=== PATIENT | female | born 1935 | race Caucasian/White ===

== ENCOUNTER 2024-07-04 14:13 | Inpatient (IN) | payer BC, MEDICARE ==
--- NOTE | 2024-07-04 14:44 | ED ---
General Adult HPI - General Chief complaint: Altered Mental Status Stated complaint: AMS Time Seen by Provider: 07/04/24 14:14 Source: patient, family, EMS, RN notes reviewed Mode of arrival: EMS Limitations: altered mental status, physical limitation - History of Present Illness Initial comments: Patient is an 88-year-old female presenting to the emergency department with concerns with change in mental status. Onset of symptoms was yesterday. Patie nt did have foul odor to the urine over the past day. Patient has been drowsy for the past 24 hours and not out of bed. No oral intake since that time. Daughter is concerned for urinary tract infection. Patient is drowsy and difficult to arouse. Patient only answers one-word with limited conversation. Patient denies complaints. - Related Data Home Medications Medication Instructions Recorded Confirmed ALPRAZolam [Xanax] 0.125 - 0.25 mg PO BID PRN 07/04/24 07/04/24 Albuterol Nebulized [Ventolin 1.25 mg INHALATION RT-Q4H PRN 07/04/24 07/04/24 Nebulized (Accuneb)] Cholecalciferol (Vitamin D3) 50 mcg PO W/LUNCH 07/04/24 07/04/24 [Vitamin D3 (50 Mcg = 2000 Iu)] Cranberry Fruit Extract [Cranberry] 500 mg PO W/LUNCH 07/04/24 07/04/24 Fluticasone/Umeclidin/Vilanter 1 puff INHALATION RT-DAILY 07/04/24 07/04/24 [Trelegy Ellipta 200-62.5-25] HYDROcodone/APAP 5-325MG [[place] 1 tab PO QID PRN 07/04/24 07/04/24 5-325] Levothyroxine Sodium [Synthroid] 50 mcg PO AC-BRKFST 07/04/24 07/04/24 Mirtazapine 15 mg PO HS 07/04/24 07/04/24 Potassium Chloride ER [K-Dur 10] 10 meq PO DAILY 07/04/24 07/04/24 Pregabalin [Lyrica] 100 mg PO HS 07/04/24 07/04/24 predniSONE 5 mg PO DAILY 07/04/24 07/04/24 Allergies Allergy/AdvReac Type Severity Reaction Status Date / Time No Known Allergies Allergy Verified 07/04/24 15:51 Review of Systems ROS Statement: Those systems with pertinent positive or pertinent negative responses have been documented in the HPI. ROS Other: All systems not noted in ROS Statement are negative. Constitutional: Denies: fever Eyes: Denies: eye pain Gastrointestinal: Denies: vomiting Musculoskeletal: Denies: back pain Neurological: Reports: as per HPI, confusion Past Medical History Past Medical History: COPD History of Any Multi-Drug Resistant Organisms: MRSA Additional Past Surgical History / Comment(s): Hip replacement, cholecystectomy and wrist surgery Past Psychological History: Anxiety Smoking Status: Never smoker Past Alcohol Use History: None Reported Past Drug Use History: None Reported General Exam Limitations: altered mental status, physical limitation General appearance: in no apparent distress, other (Drowsy. Arousable to touch) Head exam: Present: atraumatic, normocephalic Eye exam: Present: normal appearance, PERRL, EOMI ENT exam: Present: mucous membranes dry Neck exam: Present: normal inspection. Absent: tenderness, meningismus Respiratory exam: Present: normal lung sounds bilaterally Cardiovascular Exam: Present: regular rate, normal rhythm GI/Abdominal exam: Present: soft. Absent: tenderness Extremities exam: Present: normal inspection Neurological exam: Present: alert, CN II-XII intact Expanded Neurological exam: Present: protecting the airway Patient oriented to: Present: person, place. Absent: time (Family states sometimes this is normal) Motor strength exam: RUE: 5, LUE: 5, RLE: 2/1, LLE: 2/1 Eye Response: (2) open to pain Motor Response: (6) obeys commands Verbal Response: (4) confused conversation Psychiatric exam: Present: flat affect Skin exam: Present: normal color Course Vital Signs 07/04/24 07/04/24 14:15 16:00 Temperature 98.4 F Pulse Rate 62 66 Respiratory 18 18 Rate Blood Pressure 88/53 88/47 O2 Sat by Pulse 100 97 Oximetry EKG Findings - EKG Results: EKG: interpreted by ERMD (Left axis. Right bundle branch block.), sinus rhythm, normal ST/T Medical Decision Making - Medical Decision Making Was pt. sent in by a medical professional or institution (, PA, [employer]ATOR, urgent care, hospital, or usp...) When possible be specific @ -No Did you speak to anyone other than the patient for history (EMS, parent, family, police, friend...)? What history was obtained from this source @ -Daughter is present and provides majority of history as patient is drowsy and poor historian Did you review nursing and triage notes (agree or disagree)? Why? @ -I reviewed and agree with nursing and triage notes Were old charts reviewed (outside hosp., previous admission, EMS record, old EKG, old radiological studies, urgent care reports/EKG's, usp records)? Report findings @ -No labs available Differential Diagnosis (chest pain, altered mental status, abdominal pain women, abdominal pain men, vaginal bleeding, weakness, fever, dyspnea, syncope, headache, dizziness, GI bleed, back pain, seizure, CVA, palpatations, mental health, musculoskeletal)? @ -Differential Altered Mental Status: Hypoglycemia, DKA, hypercapnia, ETOH, overdose, CO poisoning, trauma, myxedema coma, HTN encephalopathy, infection, encephalitis, psychosis, intercranial hemorrhage, hepatic encephalopathy, meningitis, CVA, this is not meant to be an all-inclusive list EKG interpreted by me (3pts min.). @ -As above X-rays interpreted by me (1pt min.). @ -Chest x-ray with some bibasilar infiltrates, possible pneumonia CT interpreted by me (1pt min.). @ -CT brain without obvious acute abnormality U/S interpreted by me (1pt. min.). @ -None done What testing was considered but not performed or refused? (CT, X-rays, U/S, labs)? Why? @ -None What meds were considered but not given or refused? Why? @ -None Did you discuss the management of the patient with other professionals (professionals i.e. , PA, [employer]ATOR, lab, RT, psych nurse, manager social work, elevated work platform operator, teacher, promotions officer, manager of case management)? Give summary @ -Case discussed with practitioner Sarah Cha will admit covering hospital call Was smoking cessation discussed for >3mins.? @ -No Was critical care preformed (if so, how long)? @ -32 minutes critical care Were there social determinants of health that impacted care today? How? (Homelessness, low income, unemployed, alcoholism, drug addiction, transportation, low edu. Level, literacy, decrease access to med. care, custodial, re hab)? @ -No Was there de-escalation of care discussed even if they declined (Discuss DNR or withdrawal of care, Hospice)? DNR status @ -With long discussion with family patient is DNR. Family does not want patient to have pressors nor central line. They are aware of patient's poor status and possible deterioration. What co-morbidities impacted this encounter? (DM, HTN, Smoking, COPD, CAD, Canc er, CVA, ARF, Chemo, Hep., AIDS, mental health diagnosis, sleep apnea, morbid obesity)? @ -Frequent urinary tract infection Was patient admitted / discharged? Hospital course, mention meds given and route, prescriptions, significant lab abnormalities, going to OR and other pertinent info. @ -Patient presents with altered mental status and low blood pressure. Patient did receive 30 cc/kg fluid bolus. Blood culture and lactic acid and IV of antibiotics have all been ordered. Chest x-ray concerning for possible pneumonia. Pressors have been refused by family. Patient will be admitted. Admission orders written. Undiagnosed new problem with uncertain prognosis? @ -No Drug Therapy requiring intensive monitoring for toxicity (Heparin, Nitro, Insulin, Cardizem)? @ -No Were any procedures done? @ -No Diagnosis/symptom? @ -Pneumonia, sepsis, altered mental state, dehydration Acute, or Chronic, or Acute on Chronic? @ -Acute, acute Uncomplicated (without systemic symptoms) or Complicated (systemic symptoms)? @ -Default Side effects of treatment? @ -No Exacerbation, Progression, or Severe Exacerbation? @ -No Poses a threat to life or bodily function? How? (Chest pain, USA, CT, pneumonia, PE, COPD, DKA, ARF, appy, cholecystitis, CVA, Diverticulitis, Homicidal, Suicidal, threat to staff... and all critical care pts) @ -Threat for multi organ dysfunction - Lab Data Result diagrams: 07/04/24 14:46 07/04/24 14:46 Lab Results 07/04/24 07/04/24 07/04/24 Range/Units 14:45 14:46 14:46 WBC 23.1 H (3.8-10.6) k/uL RBC 4.68 (3.80-5.40) m/uL Hgb 13.1 (11.4-16.0) gm/dL Hct 42.9 (34.0-46.0) % MCV 91.8 (80.0-100.0) fL MCH 28.0 (25.0-35.0) pg MCHC 30.5 L (31.0-37.0) g/dL RDW 16.7 H (11.5-15.5) % Plt Count 133 L (150-450) k/uL MPV 8.3 Neutrophils % 84 % Lymphocytes % 9 % Monocytes % 5 % Eosinophils % 0 % Basophils % 0 % Neutrophils # 19.4 H (1.3-7.7) k/uL Lymphocytes # 2.1 (1.0-4.8) k/uL Monocytes # 1.1 H (0-1.0) k/uL Eosinophils # 0.0 (0-0.7) k/uL Basophils # 0.1 (0-0.2) k/uL Hypochromasia Marked Anisocytosis Slight PT 10.6 (10.0-12.5) sec INR 1.0 (<1.2) APTT 25.0 (22.0-30.0) sec Sodium (137-145) mmol/L Potassium (3.5-5.1) mmol/L Chloride (98-107) mmol/L Carbon Dioxide (22-30) mmol/L Anion Gap mmol/L BUN (7-17) mg/dL Creatinine (0.52-1.04) mg/dL Est GFR (CKD-EPI)AfAm (>60 ml/min/1.73 sqM) Est GFR (CKD-EPI)NonAf (>60 ml/min/1.73 sqM) Glucose (74-99) mg/dL POC Glucose (mg/dL) 80 (70-110) mg/dL POC Glu Retirement Sales Consultant ID Blandon, Alexia Calcium (8.4-10.2) mg/dL Total Bilirubin (0.2-1.3) mg/dL AST (14-36) U/L ALT (4-34) U/L Alkaline Phosphatase (38-126) U/L Troponin I (0.000-0.034) ng/mL Total Protein (6.3-8.2) g/dL Albumin (3.5-5.0) g/dL Urine Color Urine Appearance (Clear) Urine pH (5.0-8.0) Ur Specific [place] (1.001-1.035) Urine Protein (Negative) Urine Glucose (UA) (Negative) Urine Ketones (Negative) Urine Blood (Negative) Urine Nitrite (Negative) Urine Bilirubin (Negative) Urine Urobilinogen (<2.0) mg/dL Ur Leukocyte Esterase (Negative) Urine RBC (0-5) /hpf Urine WBC (0-5) /hpf Ur Squamous Epith Cells (0-4) /hpf Urine Bacteria (None) /hpf Hyaline Casts (0-2) /lpf Urine Mucus (None) /hpf Urine Opiates Screen (NotDetected) Ur Oxycodone Screen (NotDetected) Urine Methadone Screen (NotDetected) Ur Barbiturates Screen (NotDetected) U Tricyclic Antidepress (NotDetected) Ur Phencyclidine Scrn (NotDetected) Ur Amphetamines Screen (NotDetected) U Methamphetamines Scrn (NotDetected) U Benzodiazepines Scrn (NotDetected) Urine Cocaine Screen (NotDetected) U Marijuana (THC) Screen (NotDetected) 07/04/24 07/04/24 07/04/24 Range/Units 14:46 14:46 16:05 WBC (3.8-10.6) k/uL RBC (3.80-5.40) m/uL Hgb (11.4-16.0) gm/dL Hct (34.0-46.0) % MCV (80.0-100.0) fL MCH (25.0-35.0) pg MCHC (31.0-37.0) g/dL RDW (11.5-15.5) % Plt Count (150-450) k/uL MPV Neutrophils % % Lymphocytes % % Monocytes % % Eosinophils % % Basophils % % Neutrophils # (1.3-7.7) k/uL Lymphocytes # (1.0-4.8) k/uL Monocytes # (0-1.0) k/uL Eosinophils # (0-0.7) k/uL Basophils # (0-0.2) k/uL Hypochromasia Anisocytosis PT (10.0-12.5) sec INR (<1.2) APTT (22.0-30.0) sec Sodium 135 L (137-145) mmol/L Potassium 4.8 (3.5-5.1) mmol/L Chloride 103 (98-107) mmol/L Carbon Dioxide 22 (22-30) mmol/L Anion Gap 10 mmol/L BUN 43 H (7-17) mg/dL Creatinine 2.23 H (0.52-1.04) mg/dL Est GFR (CKD-EPI)AfAm 22 (>60 ml/min/1.73 sqM) Est GFR (CKD-EPI)NonAf 19 (>60 ml/min/1.73 sqM) Glucose 81 (74-99) mg/dL POC Glucose (mg/dL) (70-110) mg/dL POC Glu Retirement Sales Consultant ID Calcium 8.3 L (8.4-10.2) mg/dL Total Bilirubin 1.5 H (0.2-1.3) mg/dL AST 29 (14-36) U/L ALT 10 (4-34) U/L Alkaline Phosphatase 106 (38-126) U/L Troponin I 0.063 H* (0.000-0.034) ng/mL Total Protein 5.3 L (6.3-8.2) g/dL Albumin 3.2 L (3.5-5.0) g/dL Urine Color Yellow Urine Appearance Cloudy H (Clear) Urine pH 5.5 (5.0-8.0) Ur Specific [place] 1.022 (1.001-1.035) Urine Protein 1+ H (Negative) Urine Glucose (UA) Negative (Negative) Urine Ketones 1+ H (Negative) Urine Blood Negative (Negative) Urine Nitrite Negative (Negative) Urine Bilirubin Negative (Negative) Urine Urobilinogen 4.0 (<2.0) mg/dL Ur Leukocyte Esterase Negative (Negative) Urine RBC 3 (0-5) /hpf Urine WBC 3 (0-5) /hpf Ur Squamous Epith Cells <1 (0-4) /hpf Urine Bacteria Rare H (None) /hpf Hyaline Casts 7 H (0-2) /lpf Urine Mucus Rare H (None) /hpf Urine Opiates Screen Detected H (NotDetected) Ur Oxycodone Screen Detected H (NotDetected) Urine Methadone Screen Not Detected (NotDetected) Ur Barbiturates Screen Not Detected (NotDetected) U Tricyclic Antidepress Not Detected (NotDetected) Ur Phencyclidine Scrn Not Detected (NotDetected) Ur Amphetamines Screen Not Detected (NotDetected) U Methamphetamines Scrn Not Detected (NotDetected) U Benzodiazepines Scrn Detected H (NotDetected) Urine Cocaine Screen Not Detected (NotDetected) U Marijuana (THC) Screen Not Detected (NotDetected) Disposition Clinical Impression: Altered mental status Disposition: ADMITTED IP TO THIS HOSP Is patient prescribed a controlled substance at d/c from ED?: No Referrals: Kyung Garrison MD [Primary Care Provider] - 1-2 days Time of Disposition: 17:15
[2024-07-04 14:46] LABS: Glucose,Whole Blood 80 mg/dL (70-110)
[2024-07-04] MEDS: SODIUM CHLORIDE 0.9% 1,000 ML IV ONE (14:47)
[2024-07-04 14:56] LABS: Anisocytosis Slight; Basophils # (A) 0.1 k/uL (0-0.2); Basophils % (A) 0 %; Eosinophils % (A) 0 %; HCT 42.9 % (34.0-46.0); HGB 13.1 gm/dL (11.4-16.0); Hypochromasia Marked; Lymphocytes # (A) 2.1 k/uL (1.0-4.8); Lymphocytes % (A) 9 %; MCHC 30.5 g/dL (31.0-37.0); MCV 91.8 fL (80.0-100.0); Mean Platelet Volume 8.3; Monocytes # (A) 1.1 k/uL (0-1.0); Monocytes % (A) 5 %; Neutrophils # (A) 19.4 k/uL (1.3-7.7); Neutrophils % (A) 84 %; Platelet Count 133 k/uL (150-450); RBC 4.68 m/uL (3.80-5.40); RDW 16.7 % (11.5-15.5); WBC 23.1 k/uL (3.8-10.6)
[2024-07-04 15:06] LABS: Prothrombin Time 10.6 sec (10.0-12.5)
[2024-07-04 15:21] LABS: ALT 10 U/L (4-34); AST 29 U/L (14-36); African American GFR (CKD) 22 (>60 ml/min/1.73 sqM); Albumin 3.2 g/dL (3.5-5.0); Alkaline Phosphatase 106 U/L (38-126); Anion Gap 10 mmol/L; Blood Urea Nitrogen 43 mg/dL (7-17); Calcium 8.3 mg/dL (8.4-10.2); Carbon Dioxide 22 mmol/L (22-30); Chloride 103 mmol/L (98-107); Glucose 81 mg/dL (74-99); Non-African American GFR(CKD) 19 (>60 ml/min/1.73 sqM); Potassium 4.8 mmol/L (3.5-5.1); Sodium 135 mmol/L (137-145); Total Bilirubin 1.5 mg/dL (0.2-1.3); Total Protein 5.3 g/dL (6.3-8.2)
--- NOTE | 2024-07-04 15:26 | XR ---
EXAMINATION TYPE: XR chest 2V DATE OF EXAM: 07/04/2024 COMPARISON: None HISTORY: 88-year-old female confusion, altered mental status, weakness TECHNIQUE: AP and lateral views FINDINGS: Heart upper limits of normal in size. Patchy mid and lower lung opacities and trace right pleural eff usion. Old left-sided rib fracture deformity. Osteopenia. Anterior wedging deformities of multiple mi d thoracic vertebral bodies. IMPRESSION: 1. Borderline heart size with patchy bibasilar pulmonary edema versus infiltrates. Correlate for any fluid overload state or infectious respiratory signs/symptoms. 2. Trace right pleural effusion. 3. Age indeterminate anterior wedge deformities of multiple mid thoracic vertebral bodies.
[2024-07-04] MEDS: SODIUM CHLORIDE 0.9% 250 ML IV STA (15:30)
--- NOTE | 2024-07-04 16:37 | CT ---
EXAMINATION TYPE: CT brain wo con CT DLP: 1146.4 mGycm, Automated exposure control for dose reduction was used. DATE OF EXAM: 07/04/2024 4:31 PM COMPARISON: None. CLINICAL INDICATION: Female, 88 years old with history of Altered mental status, AMS TECHNIQUE: Brain: Axial CT images of the brain were obtained with coronal and sagittal reformats created and rev iewed. Contrast used: None. Oral contrast used: None. FINDINGS: Brain: Extra-axial spaces: No abnormal extra-axial fluid collections. Ventricular system: Dilatation in proportion to cerebral atrophy. Cerebral parenchyma: Cerebral atrophy. No acute intraparenchymal hemorrhage or mass effect. The cruz -white junction is well differentiated. Scattered hypoattenuating areas are seen within the white mat ter. Cerebellum: Unremarkable. Mass effect: No evidence of midline shift. Intracranial vasculature: Atherosclerotic calcifications of the intracranial vessels. Soft tissues: Normal. Calvarium/osseous structures: No depressed skull fracture. Paranasal sinuses and mastoid air cells: Mild scattered paranasal sinus disease. Right mastoid effusi on. Visualized orbits: Bilateral aphakia IMPRESSION: 1. No acute intracranial process. 2. Nonspecific white matter changes, likely secondary to chronic small vessel ischemic disease.
[2024-07-04 16:57] LABS: Amphetamine Screen,Urine Not Detected (NotDetected); Appearance,Urine Cloudy (Clear); Bacteria,Urine Rare /hpf; Barbiturate Screen,Urine Not Detected (NotDetected); Benzodiazepines Screen,Urine Detected (NotDetected); Bilirubin,Urine Negative (Negative); Blood,Urine Negative (Negative); Cocaine Screen,Urine Not Detected (NotDetected); Color,Urine Yellow; Glucose,Urine (UA) Negative (Negative); Hyaline Casts,Urine 7 /lpf (0-2); Ketones,Urine 1+ (Negative); Leukocyte Esterase,Urine Negative (Negative); Methadone Screen, Urine Not Detected (NotDetected); Mucus,Urine Rare /hpf; Nitrite,Urine Negative (Negative); Opiate Screen,Urine Detected (NotDetected); Oxycodone Screen, Urine Detected (NotDetected); PH, Urine 5.5 (5.0-8.0); Phencyclidine Screen,Urine Not Detected (NotDetected); Protein,Urine 1+ (Negative); RBC,Urine 3 /hpf (0-5); Specific Gravity,Urine 1.022 (1.001-1.035); Squamous Epithelial Cell,Urine <1 /hpf (0-4); Tricyclic Antidepressant,Urine Not Detected (NotDetected); Urn Cannabinoid Scrn Not Detected (NotDetected); WBC,Urine 3 /hpf (0-5)
[2024-07-04] MEDS ORDERED: PNEUMONIA PROTOCOL UTILIZED 1 EACH MISC PO PRN (17:15)
[2024-07-04] MEDS ORDERED: ALBUTEROL NEBULIZED 2.5 MG/3 ML INHALATION PRN (17:18)
[2024-07-04] MEDS: AZITHROMYCIN 500 MG in SODIUM CHLORIDE 0.9% 250 ML IVPB STA (18:29)
[2024-07-04] MEDS: SODIUM CHLORIDE 0.9% 1,000 ML IV SCH (18:31)
[2024-07-04] MEDS: DEXAMETHASONE SOD PHOSPHATE 4 MG/ML 1 ML VIAL IVP STA (18:31)
[2024-07-04] MEDS: PREGABALIN 100 MG CAP PO SCH (20:01)
[2024-07-05] MEDS: IPRATROPIUM 0.5 MG/2.5 ML NEBU INHALATION SCH (08:33)
[2024-07-05] MEDS: SYMBICORT 80-4.5 MCG INHALER INHALATION SCH (08:34)
--- NOTE | 2024-07-05 08:57 | XR ---
EXAMINATION TYPE: XR chest 1V portable DATE OF EXAM: 07/05/2024 Comparison: 07/04/2024 Clinical History: 88-year-old female pneumonia Findings: Heart normal size. Diffuse interstitial density has increased. Patchy mid and lower lung opacities sl ightly increased. Old bilateral fracture deformities. Impression: Diffuse interstitial opacities and patchy bilateral lower lung opacities have increased. Correlate fo r possible etiologies including fluid overload and pneumonitis.
[2024-07-05 09:24] LABS: Anisocytosis Slight; Basophils % (A) 0 %; Eosinophils % (A) 0 %; HCT 39.2 % (34.0-46.0); Hypochromasia Moderate; Lymphocytes # (A) 0.4 k/uL (1.0-4.8); Lymphocytes % (A) 3 %; MCHC 30.6 g/dL (31.0-37.0); MCV 91.5 fL (80.0-100.0); Mean Platelet Volume 8.9; Monocytes # (A) 0.3 k/uL (0-1.0); Monocytes % (A) 2 %; Neutrophils # (A) 15.4 k/uL (1.3-7.7); Neutrophils % (A) 95 %; Platelet Count 113 k/uL (150-450); RBC 4.29 m/uL (3.80-5.40); WBC 16.2 k/uL (3.8-10.6)
[2024-07-05 09:44] LABS: African American GFR (CKD) 48 (>60 ml/min/1.73 sqM); Anion Gap 10 mmol/L; Blood Urea Nitrogen 44 mg/dL (7-17); Calcium 8.3 mg/dL (8.4-10.2); Carbon Dioxide 19 mmol/L (22-30); Chloride 106 mmol/L (98-107); Glucose 104 mg/dL (74-99); Non-African American GFR(CKD) 41 (>60 ml/min/1.73 sqM); Potassium 4.8 mmol/L (3.5-5.1); Sodium 135 mmol/L (137-145)
[2024-07-05] MEDS ORDERED: IOPAMIDOL CONTRAST (ORAL USE) VIAL PO PRN (10:13)
[2024-07-05 10:15] LABS: C Reactive Protein 28.2 mg/dL (<1.0)
--- NOTE | 2024-07-05 10:16 | P.HPIM ---
History of Present Illness This is a pleasant 88 years old female with past medical history of multiple medical problems Patient presents because of weakness and altered mental status. Patient currently awake alert but very tired information were obtained with the help of daughter at bedside Ms. Svetlana Walters. It looks like patient yesterday was coming back from the restroom using her walker, when she felt very weak and she has to sit down. So family decided to bring her to the hospital Patient herself denies chest pain or dyspnea or coughing. She denies abdominal pain or vomiting or diarrhea. She denies dysuria or change in frequency. No suprapubic pain. She denies dizziness headache new lateralization like weakness or tingling/numbness. No smoking alcohol or illicit drug history Patient also complains from some soreness in her tongue. On admission patient was hypotensive 88/48, she received IV fluids and currently blood pressure 98/60. She is afebrile. Labs reviewed showing leukocytosis 23.1 down to 16.1 and platelet count 133 down to 113. Creatinine is elevated 2.23. Troponin x 2 are elevated at 0.06 and 0.03 Urine analysis is negative for infection Urine drug screen is positive for opioids, oxycodone and benzodiazepine CT of the brain is negative for acute process Chest x-ray showing cardiomegaly and bilateral pulmonary edema versus infiltrate EKG sinus rhythm at [address]-T changes Patient passed swallow evaluation and placed on soft diet Review of Systems Review of systems CONSTITUTIONAL: No fever, no malaise, no fatigue. HEENT: No recent visual problems or hearing problems. Denied any sore throat. CARDIOVASCULAR: No orthopnea, PND, no palpitations, no syncope. PULMONARY: No shortness of breath, no cough, no hemoptysis. GASTROINTESTINAL: No diarrhea, no nausea, no vomiting, no abdominal pain. Normoactive bowel sounds. NEUROLOGICAL: No headaches, no weakness, no numbness. HEMATOLOGICAL: Denies any bleeding or petechiae. GENITOURINARY: Denies any burning micturition, frequency, or urgency. MUSCULOSKELETAL/RHEUMATOLOGICAL: Denies any joint pain, swelling, or any muscle pain. ENDOCRINE: Denies any polyuria or polydipsia. Past Medical History Past Medical History: COPD History of Any Multi-Drug Resistant Organisms: MRSA Additional Past Surgical History / Comment(s): Hip replacement, cholecystectomy and wrist surgery Past Psychological History: Anxiety Smoking Status: Never smoker Past Alcohol Use History: None Reported Past Drug Use History: None Reported Medications and Allergies Home Medications Medication Instructions Recorded Confirmed Type ALPRAZolam [Xanax] 0.125 - 0.25 mg PO BID PRN 07/04/24 07/04/24 History Albuterol Nebulized [Ventolin 1.25 mg INHALATION RT-Q4H PRN 07/04/24 07/04/24 History Nebulized (Accuneb)] Cholecalciferol (Vitamin D3) 50 mcg PO W/LUNCH 07/04/24 07/04/24 History [Vitamin D3 (50 Mcg = 2000 Iu)] Cranberry Fruit Extract [Cranberry] 500 mg PO W/LUNCH 07/04/24 07/04/24 History Fluticasone/Umeclidin/Vilanter 1 puff INHALATION RT-DAILY 07/04/24 07/04/24 History [Trelegy Ellipta 200-62.5-25] HYDROcodone/APAP 5-325MG [[place] 1 tab PO QID PRN 07/04/24 07/04/24 History 5-325] Levothyroxine Sodium [Synthroid] 50 mcg PO AC-BRKFST 07/04/24 07/04/24 History Mirtazapine 15 mg PO HS 07/04/24 07/04/24 History Potassium Chloride ER [K-Dur 10] 10 meq PO DAILY 07/04/24 07/04/24 History Pregabalin [Lyrica] 100 mg PO HS 07/04/24 07/04/24 History predniSONE 5 mg PO DAILY 07/04/24 07/04/24 History Allergies Allergy/AdvReac Type Severity Reaction Status Date / Time No Known Allergies Allergy Verified 07/04/24 15:51 Physical Exam Vitals: Vital Signs Temp Pulse Resp BP Pulse Ox 07/05/24 08:45 67 07/05/24 08:34 64 100 07/05/24 07:52 97.7 F 63 20 98/60 98 07/05/24 06:00 66 16 93/56 99 07/05/24 04:00 101 H 18 113/59 07/05/24 00:00 68 17 99/68 98 07/04/24 22:00 62 16 86/48 98 07/04/24 19:15 71 16 95/76 97 07/04/24 18:35 68 18 101/52 96 07/04/24 16:00 66 18 88/47 97 07/04/24 14:15 98.4 F 62 18 88/53 100 Intake and Output 07/04/24 07/05/24 07/05/24 22:59 06:59 14:59 Output Total 550 Balance -550 Output: Urine 550 Uretheral ([place]) 550 -GENERAL: The patient is alert and oriented x3, not in any acute distress. Well d patient looks thin built and generally weak HEENT: Pupils are round and equally reacting to light. EOMI. No scleral icterus. No conjunctival pallor. Normocephalic, atraumatic. No pharyngeal erythema. No thyromegaly. CARDIOVASCULAR: S1 and S2 present. No murmurs, rubs, or gallops. -PULMONARY: Chest is clear to auscultation, no wheezing , no crackles. Mild tachypnea ABDOMEN: Soft, nontender, nondistended, normoactive bowel sounds. No palpable organomegaly. MUSCULOSKELETAL: No joint swelling or deformity. EXTREMITIES: No cyanosis, clubbing, or pedal edema. NEUROLOGICAL: Gross neurological examination did not reveal any focal deficits. SKIN: No rashes. no petechiae. Results CBC & Chem 7: 07/05/24 09:03 07/04/24 14:46 Labs: Abnormal Lab Results - Last 24 Hours (Table) 07/04/24 07/04/24 07/04/24 Range/Units 14:46 14:46 14:46 WBC 23.1 H (3.8-10.6) k/uL MCHC 30.5 L (31.0-37.0) g/dL RDW 16.7 H (11.5-15.5) % Plt Count 133 L (150-450) k/uL Neutrophils # 19.4 H (1.3-7.7) k/uL Lymphocytes # (1.0-4.8) k/uL Monocytes # 1.1 H (0-1.0) k/uL Sodium 135 L (137-145) mmol/L BUN 43 H (7-17) mg/dL Creatinine 2.23 H (0.52-1.04) mg/dL Calcium 8.3 L (8.4-10.2) mg/dL Total Bilirubin 1.5 H (0.2-1.3) mg/dL Troponin I 0.063 H* (0.000-0.034) ng/mL Total Protein 5.3 L (6.3-8.2) g/dL Albumin 3.2 L (3.5-5.0) g/dL Urine Appearance (Clear) Urine Protein (Negative) Urine Ketones (Negative) Urine Bacteria (None) /hpf Hyaline Casts (0-2) /lpf Urine Mucus (None) /hpf Urine Opiates Screen (NotDetected) Ur Oxycodone Screen (NotDetected) U Benzodiazepines Scrn (NotDetected) 07/04/24 07/04/24 07/05/24 Range/Units 16:05 21:25 09:03 WBC 16.2 H (3.8-10.6) k/uL MCHC 30.6 L (31.0-37.0) g/dL RDW 17.0 H (11.5-15.5) % Plt Count 113 L (150-450) k/uL Neutrophils # 15.4 H (1.3-7.7) k/uL Lymphocytes # 0.4 L (1.0-4.8) k/uL Monocytes # (0-1.0) k/uL Sodium (137-145) mmol/L BUN (7-17) mg/dL Creatinine (0.52-1.04) mg/dL Calcium (8.4-10.2) mg/dL Total Bilirubin (0.2-1.3) mg/dL Troponin I 0.037 H* (0.000-0.034) ng/mL Total Protein (6.3-8.2) g/dL Albumin (3.5-5.0) g/dL Urine Appearance Cloudy H (Clear) Urine Protein 1+ H (Negative) Urine Ketones 1+ H (Negative) Urine Bacteria Rare H (None) /hpf Hyaline Casts 7 H (0-2) /lpf Urine Mucus Rare H (None) /hpf Urine Opiates Screen Detected H (NotDetected) Ur Oxycodone Screen Detected H (NotDetected) U Benzodiazepines Scrn Detected H (NotDetected) Assessment and Plan Assessment: Sepsis secondary to bilateral pneumonia with organ dysfunction and form of altered mental status and mild acute hypoxic respiratory failure as well as hypotension Acute hypoxic pulmonary insufficiency Metabolic/toxic encephalopathy secondary to above Acute kidney injury versus chronic kidney disease stage III, unknown baseline Elevated troponin, most likely troponin leak Severe malnutrition, calorie protein malnutrition with BMI of 13.3 Hypertension, present on admission, improving Sepsis with tachycardia and tachypnea and leukocytosis as above Plan: Continue with gentle hydration, currently normal saline 100 mL/h Continue with ceftriaxone and Zithromax Repeat chest x-ray tomorrow morning Continue with oxygen treatment Cardiology team consult for high troponin and hypotension Check echocardiogram Check CT of the abdomen and pelvis with oral contrast only, no IV contrast in view of high creatinine Check bladder scan Resume home medication Further recommendation based on clinical course GI prophylaxis: Pepcid DVT prophylaxis subcu heparin PT/OT Prognosis is guarded
[2024-07-05] MEDS: LEVOTHYROXINE 50 MCG TAB PO SCH (10:20)
[2024-07-05] MEDS: AZITHROMYCIN 500 MG TAB PO SCH (10:21)
[2024-07-05] MEDS: predniSONE 5 MG TAB PO SCH (10:21)
[2024-07-05] MEDS: POTASSIUM CHLORIDE ER 10 MEQ TAB.ER.PRT PO SCH (10:21)
[2024-07-05] MEDS: NON FORMULARY DRUG (Cranberry Fruit Extract [Cranberry] 500 MG Tablet) PO SCH (12:09)
[2024-07-05] MEDS: CHOLECALCIFEROL 25 MCG (1000 IU) TABLET PO SCH (12:09)
[2024-07-05 14:27] LABS: T4, Free (Free Thyroxine) 1.08 ng/dL (0.78-2.19)
[2024-07-05] MEDS: FAMOTIDINE 20 MG/2 ML VIAL IV SCH (21:16)
[2024-07-05] MEDS: HEPARIN SODIUM,PORCINE 5,000 UNIT/ML 1 ML VIAL SQ SCH (21:16)
[2024-07-06] MEDS: MIRTAZAPINE 15 MG TAB PO SCH (02:18)
[2024-07-06] MEDS: ALPRAZolam 0.25 MG TAB PO PRN (05:18)
[2024-07-06] MEDS: HYDROcodone/APAP 5-325MG 1 EACH TAB PO STA (08:53)
--- NOTE | 2024-07-06 11:05 | XR ---
EXAMINATION TYPE: XR chest 1V DATE OF EXAM: 07/06/2024 COMPARISON: 07/05/2024 HISTORY: 88-year-old female shortness of breath, pneumonia TECHNIQUE: Single frontal view of the chest is obtained. FINDINGS: Heart upper limits of normal in size. Mildly tortuous thoracic aorta redemonstrated. Inter stitial densities are growing. Continued patchy medial right basilar opacity. Other patchy opacities are improving as well. Old bilateral rib fracture deformities. IMPRESSION: 1. COPD with improving interstitial opacities. 2. Persistent patchy infiltrate medial right base.
--- NOTE | 2024-07-06 11:27 | CA ---
Transthoracic Echo Report Name: Kourtney Cuevas Age: 88 Gender: F : 1935 Exam Date: 07/06/2024 09:57 Exam Location: [facility] Ht (in): 63 Wt (lb): 75 Ordering Physician: Yoel Velez MD Attending/Referring Phys: T[employer]inter [employer] Tagger Ainsley Asif RDCS Procedure CPT: Indications: Rule out heart disease Cardiac Hx: Technical Quality: Fair Contrast 1: Total Dose (mL): Contrast 2: Total Dose (mL): MEASUREMENTS (Male / Female) Normal Values 2D ECHO LV Diastolic Diameter PLAX 4.4 cm 4.2 - 5.9 / 3.9 - 5.3 cm LV Systolic Diameter PLAX 3.0 cm IVS Diastolic Thickness 0.8 cm 0.6 - 1.0 / 0.6 - 0.9 cm LVPW Diastolic Thickness 0.8 cm 0.6 - 1.0 / 0.6 - 0.9 cm LV Relative Wall Thickness 0.4 RV Internal Dim ED PLAX 1.4 cm LA Systolic Diameter LX 2.9 cm 3.0 - 4.0 / 2.7 - 3.8 cm LV Diastolic Volume MOD BP 47.6 cm??? 67 - 155 / 56 - 104 cm??? LV Systolic Volume MOD BP 18.4 cm??? 22 - 58 / 19 - 49 cm??? LV Ejection Fraction MOD BP 61.4 % >= 55 % LV Cardiac Index MOD BP 1645.2 cm???/min???m??? LV Diastolic Volume MOD 4C 53.4 cm??? LV Systolic Volume MOD 4C 21.5 cm??? LV Ejection Fraction MOD 4C 59.8 % LV Cardiac Index MOD 4C 1794.4 cm???/min???m??? LV Diastolic Length 4C 6.6 cm LV Systolic Length 4C 5.1 cm LV Diastolic Volume MOD 2C 42.0 cm??? LV Systolic Volume MOD 2C 15.7 cm??? LV Ejection Fraction MOD 2C 62.6 % LV Cardiac Index MOD 2C 1478.1 cm???/min???m??? LV Diastolic Length 2C 6.4 cm LV Systolic Length 2C 5.2 cm LA Volume 66.8 cm??? 18 - 58 / 22 - 52 cm??? LA Volume Index 55.3 cm???/m??? 16 - 28 cm???/m??? M-MODE Aortic Root Diameter MM 3.7 cm LA Systolic Diameter MM 2.8 cm LA Ao Ratio MM 0.8 AV Cusp Separation MM 1.5 cm DOPPLER AV Peak Velocity 201.6 cm/s AV Peak Gradient 16.3 mmHg AV Mean Velocity 140.1 cm/s AV Mean Gradient 9.0 mmHg AV Velocity Time Integral 44.6 cm LVOT Peak Velocity 124.4 cm/s LVOT Peak Gradient 6.2 mmHg LVOT Velocity Time Integral 33.5 cm MV Area PHT 2.3 cm??? Mitral E Point Velocity 97.7 cm/s Mitral A Point Velocity 133.8 cm/s Mitral E to A Ratio 0.7 MV Deceleration Time 331.6 ms TR Peak Velocity 259.9 cm/s TR Peak Gradient 27.0 mmHg Right Ventricular Systolic Press 46.5 mmHg FINDINGS Left Ventricle Left ventricular ejection fraction is estimated at 55-60 %. Normal left ventricular wall motion. Left ventricular cavity size normal. No obvious regional wall motion abnormalities. Right Ventricle Mild right ventricular dilatation. Moderate pulmonary hypertension. Right Atrium Moderate right atrial dilatation. Left Atrium Moderately increased left atrial volume. Mitral Valve Myxomatous (redundant) mitral valve. Moderate prolapse of the posterior mitral valve leaflet. Moderate mitral regurgitation. Aortic Valve Trileaflet aortic valve. Mild aortic stenosis with a peak gradient of 16 mmHg and a mean gradient of 9mmHg. Trace aortic regurgitation. Tricuspid Valve Structurally normal tricuspid valve. Mild tricuspid regurgitation. No tricuspid stenosis. Pulmonic Valve Structurally normal pulmonic valve. Trace pulmonic regurgitation. No pulmonic stenosis. Pericardium Left pleural effusion. No pericardial effusion. Aorta Aorta at upper limits of normal. CONCLUSIONS Mild aortic stenosis. EF55-60% Mitral valve prolapsewith Moderate MR Previewed by: Dr. Angus Bess MD (Electronically Signed) Final Date: 06 July 2024 11:26
--- NOTE | 2024-07-06 12:00 | P.PN ---
Subjective This is a pleasant 88 years old female with past medical history of multiple medical problems Patient presents because of weakness and altered mental status. Patient currently awake alert but very tired information were obtained with the help of daughter at bedside Ms. Svetlana Walters. It looks like patient yesterday was coming back from the restroom using her walker, when she felt very weak and she has to sit down. So family decided to bring her to the hospital Patient herself denies chest pain or dyspnea or coughing. She denies abdominal pain or vomiting or diarrhea. She denies dysuria or change in frequency. No suprapubic pain. She denies dizziness headache new lateralization like weakness or tingling/numbness. No smoking alcohol or illicit drug history Patient also complains from some soreness in her tongue. On admission patient was hypotensive 88/48, she received IV fluids and currently blood pressure 98/60. She is afebrile. Labs reviewed showing leukocytosis 23.1 down to 16.1 and platelet count 133 down to 113. Creatinine is elevated 2.23. Troponin x 2 are elevated at 0.06 and 0.03 Urine analysis is negative for infection Urine drug screen is positive for opioids, oxycodone and benzodiazepine CT of the brain is negative for acute process Chest x-ray showing cardiomegaly and bilateral pulmonary edema versus infiltrate EKG sinus rhythm at [address]-T changes Patient passed swallow evaluation and placed on soft diet 07/06 Patient feels better today, no significant dyspnea no chest pain no coughing Has a [place] No other new complaint Daughter at bedside and all questions answered. Patient and family want her [place] 5 back. Also she is on Xanax repeat chest x-ray showing persistent right lower Pneumonia She remains on ceftriaxone and Zithromax Labs reviewed. Creatinine 1.1. Leukocyte count 16.2 Order blood work in the morning Review of systems CONSTITUTIONAL: No fever, no malaise, no fatigue. NEUROLOGICAL: No headaches, no weakness, no numbness. HEMATOLOGICAL: Denies any bleeding or petechiae. GENITOURINARY: Denies any burning micturition, frequency, or urgency. MUSCULOSKELETAL/RHEUMATOLOGICAL: Denies any joint pain, swelling, or any muscle pain. ENDOCRINE: Denies any polyuria or polydipsia. Active Medications Generic Name Dose Route Start Last Admin Trade Name Freq PRN Reason Stop Dose Admin Hydrocodone Bitart/Acetaminophen 1 each 07/06/24 11:57 Hydrocodone/Apap 5-325mg 1 Each Tab PO QID PRN Pain Albuterol Sulfate 2.5 mg 07/04/24 17:18 Albuterol Nebulized 2.5 Mg/3 Ml INHALATION RT-Q4H PRN Shortness Of Breath Alprazolam 0.125 mg 07/06/24 01:59 07/06/24 05:18 Alprazolam 0.25 Mg Tab PO 0.125 mg BID PRN Administration Anxiety Azithromycin 500 mg 07/06/24 12:00 Azithromycin 500 Mg Tab PO 07/09/24 09:01 DAILY FEI Protocol Budesonide/Formoterol Fumarate 2 puff 07/05/24 08:00 07/06/24 08:00 Symbicort 80-4.5 Mcg Inhaler INHALATION 2 puff RT-BID FEI Administration Cholecalciferol 50 mcg 07/05/24 12:30 07/05/24 12:09 Cholecalciferol 25 Mcg (1000 Iu) Tablet PO 50 mcg W/LUNCH FEI Administration Famotidine 10 mg 07/05/24 21:00 07/06/24 08:54 Famotidine 20 Mg/2 Ml Vial IV 10 mg Q12HR FEI Administration Heparin Sodium (Porcine) 5,000 unit 07/05/24 21:00 07/06/24 08:54 Heparin Sodium,Porcine 5,000 Unit/Ml 1 Ml Vial SQ 5,000 unit Q12HR FEI Administration Ceftriaxone Sodium 1 gm/ 50 mls @ 100 mls/hr 07/06/24 09:00 07/06/24 08:53 Sodium Chloride IVPB 100 mls/hr Q24HR FEI Administration Protocol Sodium Chloride 1,000 mls @ 50 mls/hr 07/04/24 17:30 07/06/24 08:54 Saline 0.9% IV 100 mls/hr .Q20H FEI Administration Ipratropium [place] 0.5 mg 07/05/24 08:00 07/06/24 08:00 Ipratropium 0.5 Mg/2.5 Ml Nebu INHALATION 0.5 mg RT-QID FEI Administration Levothyroxine Sodium 50 mcg 07/05/24 07:30 07/06/24 08:53 Levothyroxine 50 Mcg Tab PO 50 mcg AC-BRKFST FEI Administration Mirtazapine 15 mg 07/06/24 02:12 07/06/24 02:18 Mirtazapine 15 Mg Tab PO 15 mg HS FEI Administration Miscellaneous Information 1 each 07/04/24 17:15 Pneumonia Protocol Utilized 1 Each Misc PO ONCE PRN Per Protocol Non-Formulary Medication 500 mg 07/05/24 12:30 07/05/24 12:09 Cranberry Fruit Extract [Cranberry] PO Not Given W/LUNCH FEI Potassium Chloride 10 meq 07/05/24 09:00 07/06/24 08:53 Potassium Chloride Er 10 Meq Tab.Er.Prt PO 10 meq DAILY FEI Administration Prednisone 5 mg 07/05/24 09:00 07/06/24 08:53 Prednisone 5 Mg Tab PO 5 mg DAILY FEI Administration Pregabalin 100 mg 07/04/24 21:00 07/05/24 21:15 Pregabalin 100 Mg Cap PO Not Given HS FEI Objective - Vital Signs Vital signs: Vital Signs Temp 97.6 F 07/06/24 08:00 Pulse 63 07/06/24 08:15 Resp 18 07/06/24 08:00 BP 158/90 07/06/24 08:00 Pulse Ox 99 07/06/24 08:00 FiO2 Intake & Output 07/05/24 07/06/24 07/06/24 18:59 06:59 18:59 Intake Total 118 Output Total 250 300 700 Balance -250 -300 -582 Weight 34.019 kg Intake: Oral 118 Output: Urine 250 300 700 Uretheral ([place]) 250 Other: Voiding Method Indwelling Catheter Indwelling Catheter - Exam -GENERAL: The patient is alert and oriented x3, not in any acute distress. Well developed, well nourished. Generally weak HEENT: Pupils are round and equally reacting to light. EOMI. No scleral icterus. No conjunctival pallor. Normocephalic, atraumatic. No pharyngeal erythema. No thyromegaly. CARDIOVASCULAR: S1 and S2 present. No murmurs, rubs, or gallops. -PULMONARY: Chest is clear to auscultation, no wheezing , no crackles. Mild tachypnea at rest ABDOMEN: Soft, nontender, nondistended, normoactive bowel sounds. No palpable organomegaly. MUSCULOSKELETAL: No joint swelling or deformity. EXTREMITIES: No cyanosis, clubbing, or pedal edema. NEUROLOGICAL: Gross neurological examination did not reveal any focal deficits. SKIN: No rashes. no petechiae. - Labs CBC & Chem 7: 07/05/24 09:03 07/05/24 09:03 Labs: Abnormal Lab Results - Last 24 Hours (Table) 07/05/24 Range/Units 09:03 Procalcitonin 10.20 H (0.02-0.50) ng/mL Microbiology - Last 24 Hours (Table) 07/04/24 17:00 Blood Culture - Preliminary Blood Assessment and Plan Assessment: Sepsis secondary to bilateral pneumonia with organ dysfunction and form of altered mental status and mild acute hypoxic respiratory failure as well as hypotension. Improved Acute hypoxic pulmonary insufficiency improving Metabolic/toxic encephalopathy secondary to above. Improved Acute kidney injury versus chronic kidney disease stage III, unknown baseline Elevated troponin, most likely troponin leak Severe malnutrition, calorie protein malnutrition with BMI of 13.3 Hypertension, present on admission, improving Sepsis with tachycardia and tachypnea and leukocytosis as above Plan: Continue with gentle hydration, currently normal saline 50 mL/h Continue with ceftriaxone and Zithromax Repeat chest x-ray reviewed Echocardiogram was reviewed Continue with oxygen treatment Resume home medication Further recommendation based on clinical course GI prophylaxis: Pepcid DVT prophylaxis subcu heparin PT/OT Prognosis is guarded
--- NOTE | 2024-07-06 13:55 | P.CRDCN ---
History of Present Illness Consult date: 07/06/24 Reason for Consult (text): High troponin, hypotension History of present illness: This is an 88-year-old female with no previous cardiac history. She has a past medical history of hypothyroidism, COPD, gastroesophageal reflux disease. We have been asked to evaluate the patient for high troponins and hypotension. Patient's daughter states that the patient normally has mental status changes when she is developing a urinary tract infection. This happened on Wednesday and so the daughter started the patient on antibiotics but she did not seem to be getting any better and then she became nonresponsive to the daughter. Patient was brought into the emergency center, diagnosed with sepsis, pneumonia and treated with IV antibiotics. She has had improvement of her mental status. Troponins were obtained which were elevated. Patient denies having any chest pain, no history of coronary artery disease. Blood pressure 158/90, heart rate 73, pulse ox 99% on 2 L. On presentation, patient's blood pressure was 88/53 most likely secondary to sepsis. Patient noted to have significant ecchymosis of the right eye, cheek and jaw but daughter denies having any previous falls. EKG: Sinus rhythm, right bundle branch block Chest x-ray: Borderline heart size and patchy bibasilar pulmonary edema versus infiltrates. Trace right pleural effusion. CAT scan of the brain showed no acute findings Echocardiogram reveals EF 55 to 60%, mild aortic stenosis, mitral valve prolapse with moderate MR. Laboratory studies: WBC initially 23.1 now 16.2, hemoglobin 12, platelet count 113. Sodium 135, potassium 4.8, BUN 44 initial creatinine 2.23 followed by 1.17. Troponin 0.063 and 0.037. Procalcitonin 10.2. TSH 0.268. Home cardiac medications: None Review Of Systems: At the time of my exam: CONSTITUTIONAL: Denies fever or chills. HEENT: Denies blurred vision, vision changes, or eye pain. Denies hemoptysis CARDIOVASCULAR: Denies chest pain. Denies orthopnea. Denies PND. Denies palpitations RESPIRATORY: Denies shortness of breath. GASTROINTESTINAL: Denies abdominal pain. Denies nausea or vomiting. HEMATOLOGIC: Denies bleeding disorders. GENITOURINARY: Denies any blood in urine. SKIN: Denies puritis. Denies rash. Physical examination: Gen: This is a frail-appearing 88-year-old female in no acute distress VS: reviewed HEENT: Head is atraumatic, normocephalic. Pupils equal, round. Sclerae is anicteric. NECK: Supple. No JVD. LUNGS: Clear to auscultation. No wheezes or rhonchi. No intercostal retractions. HEART: Regular rate and rhythm. No murmur. ABDOMEN: Soft No tenderness. EXTREMITIES: No pedal edema. No calf tenderness. NEUROLOGICAL: Patient is awake, alert. Assessment: Sepsis secondary to pneumonia Elevated troponin most likely type II ID secondary to sepsis Hypotension secondary to sepsis, resolved Acute kidney injury, improving Metabolic encephalopathy secondary to sepsis Hypothyroidism COPD GERD Plan: Start patient on aspirin 81 mg daily and Lipitor 40 mg daily No plan for aggressive cardiac workup Further recommendations to follow based upon clinical course Thank you kindly for this consultation. Nurse practitioner note has been reviewed, I agree with documented findings and plan of care. Patient was seen and examined. Past Medical History Past Medical History: COPD, GERD/Reflux, Thyroid Disorder History of Any Multi-Drug Resistant Organisms: None Reported, Unobtainable Past Surgical History: Cholecystectomy, Orthopedic Surgery Additional Past Surgical History / Comment(s): Hip replacement, cholecystectomy, and wrist surgery Past Anesthesia/Blood Transfusion Reactions: No Reported Reaction Past Psychological History: Anxiety Smoking Status: Never smoker Past Alcohol Use History: None Reported Past Drug Use History: None Reported Medications and Allergies Home Medications Medication Instructions Recorded Confirmed Type ALPRAZolam [Xanax] 0.125 - 0.25 mg PO BID PRN 07/04/24 07/04/24 History Albuterol Nebulized [Ventolin 1.25 mg INHALATION RT-Q4H PRN 07/04/24 07/04/24 History Nebulized (Accuneb)] Cholecalciferol (Vitamin D3) 50 mcg PO W/LUNCH 07/04/24 07/04/24 History [Vitamin D3 (50 Mcg = 2000 Iu)] Cranberry Fruit Extract [Cranberry] 500 mg PO W/LUNCH 07/04/24 07/04/24 History Fluticasone/Umeclidin/Vilanter 1 puff INHALATION RT-DAILY 07/04/24 07/04/24 History [Trelegy Ellipta 200-62.5-25] HYDROcodone/APAP 5-325MG [[place] 1 tab PO QID PRN 07/04/24 07/04/24 History 5-325] Levothyroxine Sodium [Synthroid] 50 mcg PO AC-BRKFST 07/04/24 07/04/24 History Mirtazapine 15 mg PO HS 07/04/24 07/04/24 History Potassium Chloride ER [K-Dur 10] 10 meq PO DAILY 07/04/24 07/04/24 History Pregabalin [Lyrica] 100 mg PO HS 07/04/24 07/04/24 History predniSONE 5 mg PO DAILY 07/04/24 07/04/24 History Allergies Allergy/AdvReac Type Severity Reaction Status Date / Time No Known Allergies Allergy Verified 07/04/24 15:51 Physical Exam Vitals: Vital Signs Temp Pulse Pulse Resp BP BP Pulse Ox 07/06/24 08:15 63 07/06/24 08:02 60 07/06/24 04:00 98.1 F 60 16 135/71 94 L 07/06/24 02:00 60 16 07/05/24 23:38 97.9 F 60 16 102/48 98 07/05/24 21:17 97.8 F 62 16 115/65 98 07/05/24 20:19 61 07/05/24 20:08 61 07/05/24 19:35 65 18 97/49 100 07/05/24 18:29 64 20 105/69 98 07/05/24 15:35 98.6 F 66 16 105/53 99 07/05/24 15:33 67 07/05/24 15:21 65 07/05/24 14:07 66 16 99/49 99 07/05/24 12:10 65 18 87/50 98 07/05/24 11:58 67 07/05/24 11:50 67 07/05/24 10:19 71 18 107/52 99 Intake and Output 07/05/24 07/06/24 07/06/24 22:59 06:59 14:59 Intake Total 118 Output Total 100 200 700 Balance -100 -200 -582 Intake: Oral 118 Output: Urine 100 200 700 Other: Voiding Method Indwelling Catheter Weight 34.019 kg Results 07/05/24 09:03 07/05/24 09:03 CBC 07/05/24 Range/Units 09:03 WBC 16.2 H (3.8-10.6) k/uL RBC 4.29 (3.80-5.40) m/uL Hgb 12.0 (11.4-16.0) gm/dL Hct 39.2 (34.0-46.0) % Plt Count 113 L (150-450) k/uL Comprehensive Metabolic Panel 07/05/24 Range/Units 09:03 Sodium 135 L (137-145) mmol/L Potassium 4.8 (3.5-5.1) mmol/L Chloride 106 (98-107) mmol/L Carbon Dioxide 19 L (22-30) mmol/L BUN 44 H (7-17) mg/dL Creatinine 1.17 H (0.52-1.04) mg/dL Glucose 104 H (74-99) mg/dL Calcium 8.3 L (8.4-10.2) mg/dL Current Medications Generic Name Dose Route Start Last Admin Trade Name Freq PRN Reason Stop Dose Admin Albuterol Sulfate 2.5 mg 07/04/24 17:18 Albuterol Nebulized 2.5 Mg/3 Ml INHALATION RT-Q4H PRN Shortness Of Breath Alprazolam 0.125 mg 07/06/24 01:59 07/06/24 05:18 Alprazolam 0.25 Mg Tab PO 0.125 mg BID PRN Administration Anxiety Budesonide/Formoterol Fumarate 2 puff 07/05/24 08:00 07/06/24 08:00 Symbicort 80-4.5 Mcg Inhaler INHALATION 2 puff RT-BID FEI Administration Cholecalciferol 50 mcg 07/05/24 12:30 07/05/24 12:09 Cholecalciferol 25 Mcg (1000 Iu) Tablet PO 50 mcg W/LUNCH FEI Administration Famotidine 10 mg 07/05/24 21:00 07/06/24 08:54 Famotidine 20 Mg/2 Ml Vial IV 10 mg Q12HR FEI Administration Heparin Sodium (Porcine) 5,000 unit 07/05/24 21:00 07/06/24 08:54 Heparin Sodium,Porcine 5,000 Unit/Ml 1 Ml Vial SQ 5,000 unit Q12HR FEI Administration Ceftriaxone Sodium 1 gm/ 50 mls @ 100 mls/hr 07/06/24 09:00 07/06/24 08:53 Sodium Chloride IVPB 100 mls/hr Q24HR FEI Administration Protocol Sodium Chloride 1,000 mls @ 100 mls/hr 07/04/24 17:30 07/06/24 08:54 Saline 0.9% IV 100 mls/hr .Q10H FEI Administration Iopamidol 30 ml 07/05/24 10:13 Iopamidol Contrast (Oral Use) Vial PO 07/06/24 10:[address] Scan Ipratropium [place] 0.5 mg 07/05/24 08:00 07/06/24 08:00 Ipratropium 0.5 Mg/2.5 Ml Nebu INHALATION 0.5 mg RT-QID FEI Administration Levothyroxine Sodium 50 mcg 07/05/24 07:30 07/06/24 08:53 Levothyroxine 50 Mcg Tab PO 50 mcg AC-BRKFST FEI Administration Mirtazapine 15 mg 07/06/24 02:12 07/06/24 02:18 Mirtazapine 15 Mg Tab PO 15 mg HS FEI Administration Miscellaneous Information 1 each 07/04/24 17:15 Pneumonia Protocol Utilized 1 Each Misc PO ONCE PRN Per Protocol Non-Formulary Medication 500 mg 07/05/24 12:30 07/05/24 12:09 Cranberry Fruit Extract [Cranberry] PO Not Given W/LUNCH FEI Potassium Chloride 10 meq 07/05/24 09:00 07/06/24 08:53 Potassium Chloride Er 10 Meq Tab.Er.Prt PO 10 meq DAILY FEI Administration Prednisone 5 mg 07/05/24 09:00 07/06/24 08:53 Prednisone 5 Mg Tab PO 5 mg DAILY FEI Administration Pregabalin 100 mg 07/04/24 21:00 07/05/24 21:15 Pregabalin 100 Mg Cap PO Not Given HS FEI Intake and Output 07/05/24 07/06/24 07/06/24 22:59 06:59 14:59 Intake Total 118 Output Total 100 200 700 Balance -100 -200 -582 Intake: Oral 118 Output: Urine 100 200 700 Other: Voiding Method Indwelling Catheter Weight 34.019 kg 07/05/24 09:03 07/05/24 09:03
[2024-07-06 14:28] VITALS: BMI 13.2
[2024-07-06] MEDS: HYDROcodone/APAP 5-325MG 1 EACH TAB PO PRN (16:16)
[2024-07-07] MEDS: AZITHROMYCIN 500 MG TAB PO SCH (08:26)
[2024-07-07 11:29] LABS: Anisocytosis Slight; Basophils % (A) 0 %; Eosinophils # (A) 0.2 k/uL (0-0.7); Eosinophils % (A) 2 %; HCT 38.1 % (34.0-46.0); HGB 11.5 gm/dL (11.4-16.0); Hypochromasia Marked; Lymphocytes # (A) 0.8 k/uL (1.0-4.8); Lymphocytes % (A) 9 %; MCH 27.9 pg (25.0-35.0); MCHC 30.1 g/dL (31.0-37.0); MCV 92.5 fL (80.0-100.0); Mean Platelet Volume 7.9; Monocytes # (A) 0.5 k/uL (0-1.0); Monocytes % (A) 6 %; Neutrophils # (A) 7.6 k/uL (1.3-7.7); Neutrophils % (A) 82 %; Platelet Count 120 k/uL (150-450); RBC 4.12 m/uL (3.80-5.40); RDW 16.6 % (11.5-15.5); WBC 9.2 k/uL (3.8-10.6)
[2024-07-07 11:45] LABS: African American GFR (CKD) 75 (>60 ml/min/1.73 sqM); Anion Gap 15 mmol/L; Blood Urea Nitrogen 25 mg/dL (7-17); Carbon Dioxide 23 mmol/L (22-30); Chloride 100 mmol/L (98-107); Glucose 113 mg/dL (74-99); Non-African American GFR(CKD) 65 (>60 ml/min/1.73 sqM); Potassium 4.3 mmol/L (3.5-5.1); Sodium 138 mmol/L (137-145)
--- NOTE | 2024-07-07 13:28 | P.PN ---
Subjective Progress Note Date: 07/07/24 Reason for Consult (text): High troponin, hypotension History of present illness: This is an 88-year-old female with no previous cardiac history. She has a past medical history of hypothyroidism, COPD, gastroesophageal reflux disease. We have been asked to evaluate the patient for high troponins and hypotension. Patient's daughter states that the patient normally has mental status changes when she is developing a urinary tract infection. This happened on Wednesday and so the daughter started the patient on antibiotics but she did not seem to be getting any better and then she became nonresponsive to the daughter. Patient was brought into the emergency center, diagnosed with sepsis, pneumonia and treated with IV antibiotics. She has had improvement of her mental status. Troponins were obtained which were elevated. Patient denies having any chest pain, no history of coronary artery disease. Blood pressure 158/90, heart rate 73, pulse ox 99% on 2 L. On presentation, patient's blood pressure was 88/53 most likely secondary to sepsis. Patient noted to have significant ecchymosis of the right eye, cheek and jaw but daughter denies having any previous falls. EKG: Sinus rhythm, right bundle branch block Chest x-ray: Borderline heart size and patchy bibasilar pulmonary edema versus infiltrates. Trace right pleural effusion. CAT scan of the brain showed no acute findings Echocardiogram reveals EF 55 to 60%, mild aortic stenosis, mitral valve prolapse with moderate MR. Laboratory studies: WBC initially 23.1 now 16.2, hemoglobin 12, platelet count 113. Sodium 135, potassium 4.8, BUN 44 initial creatinine 2.23 followed by 1.17 . Troponin 0.063 and 0.037. Procalcitonin 10.2. TSH 0.268. Home cardiac medications: None 07/07 Echocardiogram reveals EF of 55 to 60%. Mitral valve prolapse with moderate MR. Results of echocardiogram reviewed with the patient. No chest pain. Blood pressure 188/99, heart rate 64, pulse ox 100% on 2 L nasal cannula. Repeat blood work reveals normalization of the WBC at 9.2, hemoglobin at 11.5. BUN 25 creatinine 0.81. Physical examination: Gen: This is a frail-appearing 88-year-old female in no acute distress VS: reviewed HEENT: Head is atraumatic, normocephalic. Pupils equal, round. Sclerae is anicteric. NECK: Supple. No JVD. LUNGS: Clear to auscultation. No wheezes or rhonchi. No intercostal retractions. HEART: Regular rate and rhythm. No murmur. ABDOMEN: Soft No tenderness. EXTREMITIES: No pedal edema. No calf tenderness. NEUROLOGICAL: Patient is awake, alert. Assessment: Sepsis secondary to pneumonia Elevated troponin most likely type II PR secondary to sepsis Hypotension secondary to sepsis, resolved Acute kidney injury, improving Metabolic encephalopathy secondary to sepsis Hypothyroidism COPD GERD Plan: Continue patient on aspirin 81 mg daily and Lipitor 40 mg daily No plan for aggressive cardiac workup Cardiology will sign off this case and follow on an as-needed basis. Please reconsult for any new concerns. Patient may follow-up in the office in one to 2 weeks. Nurse practitioner note has been reviewed, I agree with documented findings and plan of care. Patient was seen and examined. Objective - Vital Signs Vital signs: Vital Signs Temp 98.1 F 07/07/24 04:53 Pulse 62 07/07/24 04:53 Resp 19 07/07/24 04:53 BP 158/76 07/07/24 04:53 Pulse Ox 98 07/07/24 04:53 FiO2 Intake & Output 07/06/24 07/07/24 07/07/24 18:59 06:59 18:59 Intake Total 358 Output Total 1550 1775 550 Balance -1192 -1775 -550 Weight 34.019 kg Intake: Oral 358 Output: Urine 1550 1775 550 Other: Voiding Method Indwelling Catheter Indwelling Catheter - Labs CBC & Chem 7: 07/07/24 11:10 07/07/24 11:10 Labs: Microbiology - Last 24 Hours (Table) 07/04/24 17:00 Blood Culture - Preliminary Blood
--- NOTE | 2024-07-07 14:45 | P.PN ---
Subjective Progress Note Date: 07/07/24 88 years old female with past medical history of multiple medical problems Patient presents because of weakness and altered mental status. Patient currently awake alert but very tired information were obtained with the help of daughter at bedside Ms. Svetlana Walters. It looks like patient yesterday was coming back from the restroom using her walker, when she felt very weak and she has to sit down. So family decided to bring her to the hospital Patient herself denies chest pain or dyspnea or coughing. She denies abdominal pain or vomiting or diarrhea. She denies dysuria or change in frequency. No s uprapubic pain. She denies dizziness headache new lateralization like weakness or tingling/numbness. No smoking alcohol or illicit drug history Patient also complains from some soreness in her tongue. On admission patient was hypotensive 88/48, she received IV fluids and currently blood pressure 98/60. She is afebrile. Labs reviewed showing leukocytosis 23.1 down to 16.1 and platelet count 133 down to 113. Creatinine is elevated 2.23. Troponin x 2 are elevated at 0.06 and 0.03 Urine analysis is negative for infection Urine drug screen is positive for opioids, oxycodone and benzodiazepine CT of the brain is negative for acute process Chest x-ray showing cardiomegaly and bilateral pulmonary edema versus infiltrate EKG sinus rhythm at [address]-T changes Patient passed swallow evaluation and placed on soft diet Objective - Vital Signs Vital signs: Vital Signs Temp 98.1 F 07/07/24 04:53 Pulse 65 07/07/24 09:10 Resp 19 07/07/24 04:53 BP 158/76 07/07/24 04:53 Pulse Ox 98 07/07/24 04:53 FiO2 Intake & Output 07/06/24 07/07/24 07/07/24 18:59 06:59 18:59 Intake Total 358 Output Total 1550 1775 550 Balance -9752 -1030 -474 Weight 34.019 kg Intake: Oral 358 Output: Urine 1550 1775 550 Other: Voiding Method Indwelling Catheter Indwelling Catheter - Exam -GENERAL: The patient is alert and oriented x3, not in any acute distress. Well developed, well nourished. Generally weak HEENT: Pupils are round and equally reacting to light. EOMI. No scleral icterus. No conjunctival pallor. Normocephalic, atraumatic. No pharyngeal erythema. No thyromegaly. CARDIOVASCULAR: S1 and S2 present. No murmurs, rubs, or gallops. -PULMONARY: Chest is clear to auscultation, no wheezing , no crackles. Mild tachypnea at rest ABDOMEN: Soft, nontender, nondistended, normoactive bowel sounds. No palpable organomegaly. MUSCULOSKELETAL: No joint swelling or deformity. EXTREMITIES: No cyanosis, clubbing, or pedal edema. NEUROLOGICAL: Gross neurological examination did not reveal any focal deficits. SKIN: No rashes. no petechiae. - Labs CBC & Chem 7: 07/07/24 11:10 07/07/24 11:10 Labs: Microbiology - Last 24 Hours (Table) 07/04/24 17:00 Blood Culture - Preliminary Blood Assessment and Plan Assessment: Sepsis secondary to bilateral pneumonia with organ dysfunction and form of a ltered mental status and mild acute hypoxic respiratory failure as well as hypotension. Improved Acute hypoxic pulmonary insufficiency improving Metabolic/toxic encephalopathy secondary to above. Improved Acute kidney injury versus chronic kidney disease stage III, unknown baseline Elevated troponin, most likely troponin leak Severe malnutrition, calorie protein malnutrition with BMI of 13.3 Hypertension, present on admission, improving Sepsis with tachycardia and tachypnea and leukocytosis as above Plan: Continue with gentle hydration, currently normal saline 50 mL/h Continue with ceftriaxone and Zithromax Repeat chest x-ray reviewed Echocardiogram was reviewed Continue with oxygen treatment Resume home medication Further recommendation based on clinical course GI prophylaxis: Pepcid DVT prophylaxis subcu heparin PT/OT Prognosis is guarded
[2024-07-08 07:36] LABS: Anisocytosis Slight; Basophils % (A) 1 %; Eosinophils # (A) 0.2 k/uL (0-0.7); Eosinophils % (A) 4 %; HCT 37.9 % (34.0-46.0); HGB 11.5 gm/dL (11.4-16.0); Hypochromasia Marked; Lymphocytes # (A) 0.9 k/uL (1.0-4.8); Lymphocytes % (A) 14 %; MCH 27.9 pg (25.0-35.0); MCHC 30.3 g/dL (31.0-37.0); MCV 91.8 fL (80.0-100.0); Mean Platelet Volume 8.3; Monocytes # (A) 0.5 k/uL (0-1.0); Monocytes % (A) 9 %; Neutrophils # (A) 4.1 k/uL (1.3-7.7); Neutrophils % (A) 70 %; Platelet Count 106 k/uL (150-450); RBC 4.12 m/uL (3.80-5.40); RDW 16.6 % (11.5-15.5); WBC 5.9 k/uL (3.8-10.6)
[2024-07-08 07:59] LABS: African American GFR (CKD) >90 (>60 ml/min/1.73 sqM); Anion Gap 5 mmol/L; Blood Urea Nitrogen 22 mg/dL (7-17); Calcium 8.5 mg/dL (8.4-10.2); Carbon Dioxide 26 mmol/L (22-30); Chloride 109 mmol/L (98-107); Glucose 80 mg/dL (74-99); Non-African American GFR(CKD) 78 (>60 ml/min/1.73 sqM); Potassium 4.3 mmol/L (3.5-5.1); Sodium 140 mmol/L (137-145)
[2024-07-08] MEDS: FAMOTIDINE 20 MG TAB PO SCH (09:23)
--- NOTE | 2024-07-08 12:56 | P.PN ---
Subjective Progress Note Date: 07/08/24 88 years old female with past medical history of multiple medical problems Patient presents because of weakness and altered mental status. Patient currently awake alert but very tired information were obtained with the help of daughter at bedside Ms. Svetlana Walters. It looks like patient yesterday was coming back from the restroom using her walker, when she felt very weak and she has to sit down. So family decided to bring her to the hospital Patient herself denies chest pain or dyspnea or coughing. She denies abdominal pain or vomiting or diarrhea. She denies dysuria or change in frequency. No s uprapubic pain. She denies dizziness headache new lateralization like weakness or tingling/numbness. No smoking alcohol or illicit drug history Patient also complains from some soreness in her tongue. On admission patient was hypotensive 88/48, she received IV fluids and currently blood pressure 98/60. She is afebrile. Labs reviewed showing leukocytosis 23.1 down to 16.1 and platelet count 133 down to 113. Creatinine is elevated 2.23. Troponin x 2 are elevated at 0.06 and 0.03 Urine analysis is negative for infection Urine drug screen is positive for opioids, oxycodone and benzodiazepine CT of the brain is negative for acute process Chest x-ray showing cardiomegaly and bilateral pulmonary edema versus infiltrate EKG sinus rhythm at [address]-T changes Patient passed swallow evaluation and placed on soft diet 07/08/2024 Patient is seen and evaluated in room at bedside; family present in the room; all of patient's and family's questions were answered in detail Vital signs are reviewed and remained stable, patient is saturating above 95% on room air Lab review shows a WBC of 5.9, hemoglobin of 11.5 and platelet count of 106, sodium 140, potassium 4.3, BUNs/creatinine down to 22/0.67 from 40/1.17 upon admission --Patient remains on IV antibiotics in form of ceftriaxone and azithromycin Remains chest pain-free; 2D echo completed and reveals an EF of 55 to 60% with mitral valve prolapse and moderate mitral regurg; patient has been evaluated by cardiology and no further workup is recommended Possible discharge in next 24 to 48 hours if remains stable Objective - Vital Signs Vital signs: Vital Signs Temp 97.9 F 07/08/24 09:20 Pulse 56 L 07/08/24 09:20 Resp 17 07/08/24 09:20 BP 138/74 07/08/24 09:20 Pulse Ox 100 07/08/24 09:20 FiO2 Intake & Output 07/07/24 07/08/24 07/08/24 18:59 06:59 18:59 Intake Total 240 Output Total 1150 850 Balance -910 -850 Weight 43 kg Intake: Oral 240 Output: Urine 1150 850 Uretheral (Winters) 300 Other: Voiding Method Indwelling Catheter Indwelling Catheter - Exam -GENERAL: The patient is alert and oriented x3, not in any acute distress. Well developed, well nourished. Generally weak HEENT: Pupils are round and equally reacting to light. EOMI. No scleral icterus. No conjunctival pallor. Normocephalic, atraumatic. No pharyngeal erythema. No thyromegaly. CARDIOVASCULAR: S1 and S2 present. No murmurs, rubs, or gallops. -PULMONARY: Chest is clear to auscultation, no wheezing , no crackles. Mild tachypnea at rest ABDOMEN: Soft, nontender, nondistended, normoactive bowel sounds. No palpable organomegaly. MUSCULOSKELETAL: No joint swelling or deformity. EXTREMITIES: No cyanosis, clubbing, or pedal edema. NEUROLOGICAL: Gross neurological examination did not reveal any focal deficits. SKIN: No rashes. no petechiae. - Labs CBC & Chem 7: 07/08/24 07:06 07/08/24 07:06 Labs: Abnormal Lab Results - Last 24 Hours (Table) 07/07/24 07/07/24 07/08/24 Range/Units 11:10 11:10 07:06 MCHC 30.1 L 30.3 L (31.0-37.0) g/dL RDW 16.6 H 16.6 H (11.5-15.5) % Plt Count 120 L 106 L (150-450) k/uL Lymphocytes # 0.8 L 0.9 L (1.0-4.8) k/uL Chloride (98-107) mmol/L BUN 25 H (7-17) mg/dL Glucose 113 H (74-99) mg/dL 07/08/24 Range/Units 07:06 MCHC (31.0-37.0) g/dL RDW (11.5-15.5) % Plt Count (150-450) k/uL Lymphocytes # (1.0-4.8) k/uL Chloride 109 H (98-107) mmol/L BUN 22 H (7-17) mg/dL Glucose (74-99) mg/dL Microbiology - Last 24 Hours (Table) 07/04/24 17:00 Blood Culture - Preliminary Blood Assessment and Plan Assessment: Sepsis secondary to bilateral pneumonia with organ dysfunction and form of altered mental status and mild acute hypoxic respiratory failure as well as hypotension. Improved Acute hypoxic pulmonary insufficiency improving Metabolic/toxic encephalopathy secondary to above. Improved Acute kidney injury versus chronic kidney disease stage III, unknown baseline Elevated troponin, most likely troponin leak Severe malnutrition, calorie protein malnutrition with BMI of 13.3 Hypertension, present on admission, improving Sepsis with tachycardia and tachypnea and leukocytosis as above Plan: Continue with gentle hydration, currently normal saline 50 mL/h Continue with ceftriaxone and Zithromax Repeat chest x-ray reviewed Echocardiogram was reviewed Continue with oxygen treatment Resume home medication Further recommendation based on clinical course GI prophylaxis: Pepcid DVT prophylaxis subcu heparin PT/OT Prognosis is guarded
[2024-07-09 09:08] LABS: African American GFR (CKD) 79 (>60 ml/min/1.73 sqM); Anion Gap 4 mmol/L; Blood Urea Nitrogen 22 mg/dL (7-17); Calcium 8.9 mg/dL (8.4-10.2); Carbon Dioxide 27 mmol/L (22-30); Chloride 107 mmol/L (98-107); Glucose 93 mg/dL (74-99); Non-African American GFR(CKD) 69 (>60 ml/min/1.73 sqM); Potassium 4.2 mmol/L (3.5-5.1); Sodium 138 mmol/L (137-145)
--- NOTE | 2024-07-09 15:12 | P.PN ---
Subjective Progress Note Date: 07/09/24 88 years old female with past medical history of multiple medical problems Patient presents because of weakness and altered mental status. Patient currently awake alert but very tired information were obtained with the help of daughter at bedside Ms. Svetlana Walters. It looks like patient yesterday was coming back from the restroom using her walker, when she felt very weak and she has to sit down. So family decided to bring her to the hospital Patient herself denies chest pain or dyspnea or coughing. She denies abdominal pain or vomiting or diarrhea. She denies dysuria or change in frequency. No s uprapubic pain. She denies dizziness headache new lateralization like weakness or tingling/numbness. No smoking alcohol or illicit drug history Patient also complains from some soreness in her tongue. On admission patient was hypotensive 88/48, she received IV fluids and currently blood pressure 98/60. She is afebrile. Labs reviewed showing leukocytosis 23.1 down to 16.1 and platelet count 133 down to 113. Creatinine is elevated 2.23. Troponin x 2 are elevated at 0.06 and 0.03 Urine analysis is negative for infection Urine drug screen is positive for opioids, oxycodone and benzodiazepine CT of the brain is negative for acute process Chest x-ray showing cardiomegaly and bilateral pulmonary edema versus infiltrate EKG sinus rhythm at [address]-T changes Patient passed swallow evaluation and placed on soft diet 07/08/2024 Patient is seen and evaluated in room at bedside; family present in the room; all of patient's and family's questions were answered in detail Vital signs are reviewed and remained stable, patient is saturating above 95% on room air Lab review shows a WBC of 5.9, hemoglobin of 11.5 and platelet count of 106, sodium 140, potassium 4.3, BUNs/creatinine down to 22/0.67 from 40/1.17 upon admission --Patient remains on IV antibiotics in form of ceftriaxone and azithromycin Remains chest pain-free; 2D echo completed and reveals an EF of 55 to 60% with mitral valve prolapse and moderate mitral regurg; patient has been evaluated by cardiology and no further workup is recommended Possible discharge in next 24 to 48 hours if remains stable 07/09/2024 Patient is seen and evaluated sitting up in bedside chair; reports no new complaints; reports improvement in breathing Vital signs are reviewed and stable; remains afebrile; saturating above 95% on room air Labs are reviewed and stable with sodium 138, potassium 4.2, BUNs/creatinine of 22/0.77 --Remains under treatment with IV antibiotics with ceftriaxone and azithromycin for community-acquired pneumonia; clinically markedly improved -Patient has been evaluated by PT/OT and is recommended skilled rehab; patient was initially resistant to the idea; agreeable now -Case management for discharge planning Objective - Vital Signs Vital signs: Vital Signs Temp 98 F 07/09/24 08:00 Pulse 62 07/09/24 08:00 Resp 17 07/09/24 08:00 BP 161/78 07/09/24 08:00 Pulse Ox 97 07/09/24 08:00 FiO2 Intake & Output 07/08/24 07/09/24 07/09/24 18:59 06:59 18:59 Intake Total 378 240 10 Balance 378 240 10 Weight 40.8 kg Intake: IV 20 10 Invasive Line 3 20 Invasive Line 4 10 Oral 358 240 Other: Voiding Method Toilet Toilet Toilet # Voids 2 2 # Bowel Movements 1 - Exam -GENERAL: The patient is alert and oriented x3, not in any acute distress. Well developed, well nourished. Generally weak HEENT: Pupils are round and equally reacting to light. EOMI. No scleral icterus. No conjunctival pallor. Normocephalic, atraumatic. No pharyngeal erythema. No thyromegaly. CARDIOVASCULAR: S1 and S2 present. No murmurs, rubs, or gallops. -PULMONARY: Chest is clear to auscultation, no wheezing , no crackles. Mild tachypnea at rest ABDOMEN: Soft, nontender, nondistended, normoactive bowel sounds. No palpable organomegaly. MUSCULOSKELETAL: No joint swelling or deformity. EXTREMITIES: No cyanosis, clubbing, or pedal edema. NEUROLOGICAL: Gross neurological examination did not reveal any focal deficits. SKIN: No rashes. no petechiae. - Labs CBC & Chem 7: 07/08/24 07:06 07/09/24 08:10 Labs: Abnormal Lab Results - Last 24 Hours (Table) 07/09/24 Range/Units 08:10 BUN 22 H (7-17) mg/dL Assessment and Plan Assessment: Sepsis secondary to bilateral pneumonia with organ dysfunction and form of altered mental status and mild acute hypoxic respiratory failure as well as hypotension. Improved Acute hypoxic pulmonary insufficiency improving Metabolic/toxic encephalopathy secondary to above. Improved Acute kidney injury versus chronic kidney disease stage III, unknown baseline Elevated troponin, most likely troponin leak Severe malnutrition, calorie protein malnutrition with BMI of 13.3 Hypertension, present on admission, improving Sepsis with tachycardia and tachypnea and leukocytosis as above Plan: Continue with gentle hydration, currently normal saline 50 mL/h Continue with ceftriaxone and Zithromax Repeat chest x-ray reviewed Echocardiogram was reviewed Continue with oxygen treatment Resume home medication Further recommendation based on clinical course GI prophylaxis: Pepcid DVT prophylaxis subcu heparin PT/OT Prognosis is guarded
[2024-07-10 05:19] VITALS: RESP 18
[2024-07-10 08:38] LABS: African American GFR (CKD) 71 (>60 ml/min/1.73 sqM); Anion Gap 3 mmol/L; Blood Urea Nitrogen 24 mg/dL (7-17); Calcium 9.3 mg/dL (8.4-10.2); Carbon Dioxide 32 mmol/L (22-30); Chloride 104 mmol/L (98-107); Glucose 74 mg/dL (74-99); Non-African American GFR(CKD) 61 (>60 ml/min/1.73 sqM); Potassium 4.2 mmol/L (3.5-5.1); Sodium 139 mmol/L (137-145)
[2024-07-10 08:41] VITALS: TEMP 97.9
[2024-07-10 13:18] VITALS: BP 142/86; PULSE 65
--- NOTE | 2024-07-10 13:23 | P.DS ---
Providers Date of admission: 07/04/24 17:18 Expected date of discharge: 07/10/24 Attending physician: Robe Belcher Consults: 07/05/24 10:12 Consult Physician Routine Consulting Provider: Rachel Stephens Consult Reason/Comments: HIGH TROPONIN and HYPOTENSION Do you want consulting provider notified?: Yes Primary care physician: Kyung Hoover Bladimir Hospital Course: Discharge diagnoses; Sepsis secondary to bilateral pneumonia with organ dysfunction and form of altered mental status and mild acute hypoxic respiratory failure as well as hypotension. Improved Acute hypoxic pulmonary insufficiency improving Metabolic/toxic encephalopathy secondary to above. Improved Acute kidney injury versus chronic kidney disease stage III, unknown baseline Elevated troponin, most likely troponin leak Severe malnutrition, calorie protein malnutrition with BMI of 13.3 Hypertension, present on admission, improving Sepsis with tachycardia and tachypnea and leukocytosis as above Hospital course; 88 years old female with past medical history of multiple medical problems Patient presents because of weakness and altered mental status. Patient currently awake alert but very tired information were obtained with the help of daughter at bedside Ms. Svetlana Walters. It looks like patient yesterday was coming back from the restroom using her walker, when she felt very weak and she has to sit down. So family decided to bring her to the hospital Patient herself denies chest pain or dyspnea or coughing. She denies abdominal pain or vomiting or diarrhea. She denies dysuria or change in frequency. No suprapubic pain. She denies dizziness headache new lateralization like weakness or tingling/numbness. No smoking alcohol or illicit drug history Patient also complains from some soreness in her tongue. On admission patient was hypotensive 88/48, she received IV fluids and currently blood pressure 98/60. She is afebrile. Labs reviewed showing leukocytosis 23.1 down to 16.1 and platelet count 133 down to 113. Creatinine is elevated 2.23. Troponin x 2 are elevated at 0.06 and 0.03 Urine analysis is negative for infection Urine drug screen is positive for opioids, oxycodone and benzodiazepine CT of the brain is negative for acute process Chest x-ray showing cardiomegaly and bilateral pulmonary edema versus infiltrate EKG sinus rhythm at [address]-T changes Patient passed swallow evaluation and placed on soft diet 07/08/2024 Patient is seen and evaluated in room at bedside; family present in the room; all of patient's and family's questions were answered in detail Vital signs are reviewed and remained stable, patient is saturating above 95% on room air Lab review shows a WBC of 5.9, hemoglobin of 11.5 and platelet count of 106, sodium 140, potassium 4.3, BUNs/creatinine down to 22/0.67 from 40/1.17 upon admission --Patient remains on IV antibiotics in form of ceftriaxone and azithromycin Remains chest pain-free; 2D echo completed and reveals an EF of 55 to 60% with mitral valve prolapse and moderate mitral regurg; patient has been evaluated by cardiology and no further workup is recommended Possible discharge in next 24 to 48 hours if remains stable 07/09/2024 Patient is seen and evaluated sitting up in bedside chair; reports no new complaints; reports improvement in breathing Vital signs are reviewed and stable; remains afebrile; saturating above 95% on room air Labs are reviewed and stable with sodium 138, potassium 4.2, BUNs/creatinine of 22/0.77 --Remains under treatment with IV antibiotics with ceftriaxone and azithromycin for community-acquired pneumonia; clinically markedly improved -Patient has been evaluated by PT/OT and is recommended skilled rehab; patient was initially resistant to the idea; agreeable now -Case management for discharge planning 07/10. Patient seen and examined. Patient completed 5 days of antibiotics. Patient keen to go home. Being discharged home with home care PHYSICAL EXAMINATION: GENERAL: The patient is alert and oriented x3, not in any acute distress. HEENT: Pupils are round and equally reacting to light. EOMI. No scleral icterus. No conjunctival pallor. Normocephalic, atraumatic. No pharyngeal erythema. No thyromegaly. CARDIOVASCULAR: S1 and S2 present. No murmurs, rubs, or gallops. PULMONARY: Chest is clear to auscultation, no wheezing or crackles. ABDOMEN: Soft, nontender, nondistended, normoactive bowel sounds. No palpable organomegaly. MUSCULOSKELETAL: No joint swelling or deformity. EXTREMITIES: No cyanosis, clubbing, or pedal edema. NEUROLOGICAL: Gross neurological examination did not reveal any focal deficits. SKIN: No rashes. Dictation was produced using [employer] software. please excuse any grammatical, word or spelling errors. Patient Condition at Discharge: Fair Plan - Discharge Summary Discharge Rx Participant: No New Discharge Prescriptions: Continue Levothyroxine Sodium [Synthroid] 50 mcg PO AC-BRKFST Albuterol Nebulized [Ventolin Nebulized (Accuneb)] 1.25 mg INHALATION RT-Q4H PRN PRN Reason: Shortness Of Breath predniSONE 5 mg PO DAILY Potassium Chloride ER [K-Dur 10] 10 meq PO DAILY HYDROcodone/APAP 5-325MG [[place] 5-325] 1 tab PO QID PRN PRN Reason: Pain ALPRAZolam [Xanax] 0.125 - 0.25 mg PO BID PRN PRN Reason: Anxiety Mirtazapine 15 mg PO HS Cranberry Fruit Extract [Cranberry] 500 mg PO W/LUNCH Cholecalciferol (Vitamin D3) [Vitamin D3 (50 Mcg = 2000 Iu)] 50 mcg PO W/LUNCH Pregabalin [Lyrica] 100 mg PO HS Fluticasone/Umeclidin/Vilanter [Trelegy Ellipta 200-62.5-25] 1 puff INHALATION RT-DAILY Discharge Medication List ALPRAZolam [Xanax] 0.125 - 0.25 mg PO BID PRN 07/04/24 [History] Albuterol Nebulized [Ventolin Nebulized (Accuneb)] 1.25 mg INHALATION RT-Q4H PRN 07/04/24 [History] Cholecalciferol (Vitamin D3) [Vitamin D3 (50 Mcg = 2000 Iu)] 50 mcg PO W/LUNCH 07/04/24 [History] Cranberry Fruit Extract [Cranberry] 500 mg PO W/LUNCH 07/04/24 [History] Fluticasone/Umeclidin/Vilanter [Trelegy Ellipta 200-62.5-25] 1 puff INHALATION RT-DAILY 07/04/24 [History] HYDROcodone/APAP 5-325MG [[place] 5-325] 1 tab PO QID PRN 07/04/24 [History] Levothyroxine Sodium [Synthroid] 50 mcg PO AC-BRKFST 07/04/24 [History] Mirtazapine 15 mg PO HS 07/04/24 [History] Potassium Chloride ER [K-Dur 10] 10 meq PO DAILY 07/04/24 [History] Pregabalin [Lyrica] 100 mg PO HS 07/04/24 [History] predniSONE 5 mg PO DAILY 07/04/24 [History] Follow up Appointment(s)/Referral(s): Kyung Garrison MD [Primary Care Provider] - 1-2 days Discharge Disposition: HOME SELF-CARE
== END 2024-07-10 15:16 | disposition home or self-care (01) | DRG 871 ==
LOC: EC 14:13 → 3SCARD 17:18
PROVIDERS: ADMIT Hospitalist; ATTEND Hospitalist
DX: A41.9 Sepsis, unspecified organism (principal); E43 Unspecified severe protein-calorie malnutrition; J96.01 Acute respiratory failure with hypoxia; G92.8 Other toxic encephalopathy; I21.A1 Myocardial infarction type 2; J18.9 Pneumonia, unspecified organism; N17.9 Acute kidney failure, unspecified; J44.0 Chronic obstructive pulmonary disease with (acute) lower respiratory infection; Z68.1 Body mass index [BMI] 19.9 or less, adult; I11.9 Hypertensive heart disease without heart failure; E03.9 Hypothyroidism, unspecified; R65.20 Severe sepsis without septic shock; I08.0 Rheumatic disorders of both mitral and aortic valves; K21.9 Gastro-esophageal reflux disease without esophagitis; R58 Hemorrhage, not elsewhere classified; Z96.649 Presence of unspecified artificial hip joint; Z79.51 Long term (current) use of inhaled steroids; Z79.890 Hormone replacement therapy; Z79.899 Other long term (current) drug therapy; Z79.52 Long term (current) use of systemic steroids; Z86.14 Personal history of Methicillin resistant Staphylococcus aureus infection
CPT/HCPCS: 36415; 70450; 71045; 71046; 80048; 80053; 80306; 81001; 82533; 83605; 84145; 84439; 84443; 84484; 85025; 85610; 85730; 86140; 87040; 87449; 93005; 93306; 94640; 94760; 96361; 96365; 96366; 96367; 96375; 99291